=== PATIENT | male | born 1985 | race Caucasian/White ===

== ENCOUNTER 2024-08-02 23:13 | Emergency (ER) | payer SELFPAY ==
[2024-08-02 23:14] VITALS: BP 107/61
[2024-08-02 23:15] VITALS: BP 107/61
[2024-08-02 23:20] VITALS: BMI 26.9
[2024-08-02 23:32] LABS: % Basophils 0.7 % (0-2); % Eosinophils 1.3 % (0-6); % Immature Granulocytes 0.9 % (0-0.5); % Monocytes 4.9 % (1.7-9.3); % Neutrophils 70.2 % (42.2-75.2); Absolute Basophils 0.1 10^3/uL (0-0.2); Absolute Eosinophils 0.2 10^3/uL (0-0.7); Absolute Immature Granulocytes 0.1 10^3/uL (0-0.05); Absolute Lymphocytes 2.5 10^3/uL (1.2-3.4); Absolute Monocytes 0.6 10^3/uL (0.1-0.6); Absolute Neutrophils 7.9 10^3/uL (1.4-6.5); Hematocrit 38.9 % (39.0-52.0); Hemoglobin 13.5 g/dL (13.0-18.0); Mean Corp Hgb Conc. 34.7 g/dL (33.0-37.0); Mean Corpuscular Hgb 28.9 pg (27.0-31.0); Mean Corpuscular Volume 83.3 fL (80.0-94.0); Mean Platelet Volume 9.8 fL (7.4-10.4); Nucleated Red Blood Cells % 0 % (-); Platelet Count 290 10^3/uL (130-400); Red Blood Cell Count 4.67 10^6/uL (4.70-6.10); Red Cell Dist. Width 12.6 % (11.5-14.5); White Blood Cell Count 11.2 10^3/uL (4.8-10.8)
--- NOTE | 2024-08-02 23:47 | ED.GENMED ---
History of Present Illness
<AIDE Miller - Last Filed: 08/03/24 01:07>
General
Chief Complaint: Fainting/Passed Out
Source: patient and family (Mother)
Exam Limitations: none
Time Seen by Provider: 08/02/24 23:37
Nursing documentation reviewed up to this point in time: agreed with
History of Present Illness
History of Present Illness:
Pt is a 38 y/o M with pmhx of substance abuse presents with complaints of left shoulder pain x2 hrs ago. The pt had a witnessed loss of consciousness with diaphoresis at 10 pm. He fell onto his mother and a coffee table and his mother lowered him to
the ground. She is unsure of how long the pt was unconscious for and the pt is unable to recall the event. The pt's mother reported that shook him in an attempt to wake him up. The pt has complaints of severe left shoulder pain that is rated 10/10
in severity. He is unable to move his left arm. He reported that he has not eaten or drank anything all day. Denies numbness, tingling, weakness. Denies history of left shoulder injury, prior shoulder dislocations, prior seizures.
Past History
<AIDE Miller - Last Filed: 08/03/24 01:07>
Past History
ED Past Medical History: None
ED Past Surgical History: None
Social History
Tobacco: Smoker
Alcohol: None
Drug: Marijuana
Review of Systems
<AIDE Miller - Last Filed: 08/03/24 01:07>
Review of Systems
Allergies reviewed?: Yes
Constitutional: Reports no symptoms
EENT: Reports no symptoms
Respiratory: Reports no symptoms
Cardiac: Reports no symptoms
ABD/GI: Reports no symptoms
: Reports no symptoms
Musculoskeletal: Reports joint pain (left shoulder) and joint swelling
Skin: Reports no symptoms
Neurological: Reports no symptoms
Endocrine: Reports no symptoms
Hematologic/Lymphatic: Reports no symptoms
Psychiatric: Reports no symptoms
Phy Exam
<AIDE Miller - Last Filed: 08/03/24 01:07>
General Physical Exam
General Presentation: well appearing and moderate distress
General age: appears stated age
General Skin: warm and dry
General Habitus: normal
General Mental: alert
General Hydration: appears well hydrated
ENT Exam
ENT Exam: EOMI and neck supple
Eye Exam
Eye Exam: PERRL, EOMI, cornea clear and conjunctiva normal
Cardiovascular Exam
Cardiovascular Exam: regular rate/rhythm and normal peripheral pulses
Pulmonary Exam
Pulmonary Exam: lungs clear, no respiratory distress, no rales, chest non tender, no crackles, no rhonchi, no stridor, no wheezing and no cough
Gastrointestinal Exam
Gastrointestinal Exam: normal bowel sounds, non tender, soft and non distended
Neurological Exam
Neurological Exam: alert, oriented x3, CN II-XII intact, no sensory deficits and speech normal
Musculoskeletal Exam
Musculoskeletal Exam: neuro vasc intact and other (left shoulder tenderness. Left humeral head displaced anteriorly. Unable to move left shoulder. Laboratory Miller strength intact. Left elbow and wrist ROM intact.)
Skin Exam
Skin Exam: normal color and warm/dry
Psychiatric Exam
Psychiatric Exam: normal mood/affect
Course
<AIDE Miller - Last Filed: 08/03/24 01:07>
Orders/Labs/Results
Orders:
Orders
08/02/24 23:22
Electrocardiogram (*1) Urgent
Reason for Study: Chest Pain
Cardiac Monitoring- Treatment ONCE
EKG- Treatment ONCE
O2 Therapy [RESP] Urgent
Titrate/Wean O2 to maintain O2 sat greater than (%): 90
Special Instructions: Maintain sats >/=90%
Pulse Ox/spot Check [RESP] Urgent
Quantity: 1
Special Instructions: ON ROOM AIR
08/02/24 23:24
Complete Blood Count/With Diff Urgent
Comprehensive Metabolic Panel Urgent
08/02/24 23:57
HYDROmorphone [Dilaudid] 1 mg IV NOW STA
08/03/24 00:03
CR Shoulder, Trauma - Left Urgent
Reason For Exam: syncope, fall onto L shoulder
08/03/24 00:30
Propofol [Diprivan] 20 ml .ROUTE .STK-MED
08/03/24 01:04
Shoulder, Left 1 View CR [CR Shoulder - Left 1 View] Urgent
Comment:
Reason For Exam: post reduction
08/03/24 01:56
Orthostatic VS- Treatment ONCE
Abnormal Lab Results
08/02/24
23:24
WBC 11.2 H 10^3/uL
(4.8-10.8)
RBC 4.67 L 10^6/uL
(4.70-6.10)
Hct 38.9 L %
(39.0-52.0)
Abs Immat Gran (auto) 0.1 H 10^3/uL
(0-0.05)
Absolute Neuts (auto) 7.9 H 10^3/uL
(1.4-6.5)
Immature Gran % 0.9 H %
(0-0.5)
Carbon Dioxide 18 L mmol/L
(22-30)
Glucose 114 H mg/dl
(70-99)
Albumin 5.2 H g/dl
(3.5-5.0)
08/02/24 23:24
08/02/24 23:24
Vital Signs
Initial and Last Documented VS:
Initial Vital Signs
Temp Pulse Resp BP Pulse Ox
98.3 F 99 18 107/61 98
08/02/24 23:14 08/02/24 23:14 08/02/24 23:14 08/02/24 23:14 08/02/24 23:14
Last Documented Vital Signs
Temp Pulse Resp BP Pulse Ox
98.1 F 80 16 119/74 100
08/03/24 02:02 08/03/24 02:02 08/03/24 02:02 08/03/24 02:02 08/03/24 02:02
<Swathi Monroy, DO - Last Filed: 08/03/24 02:54>
Orders/Labs/Results
Orders:
Orders
08/02/24 23:22
Electrocardiogram (*1) Urgent
Reason for Study: Chest Pain
Cardiac Monitoring- Treatment ONCE
EKG- Treatment ONCE
O2 Therapy [RESP] Urgent
Titrate/Wean O2 to maintain O2 sat greater than (%): 90
Special Instructions: Maintain sats >/=90%
Pulse Ox/spot Check [RESP] Urgent
Quantity: 1
Special Instructions: ON ROOM AIR
08/02/24 23:24
Complete Blood Count/With Diff Urgent
Comprehensive Metabolic Panel Urgent
08/02/24 23:57
HYDROmorphone [Dilaudid] 1 mg IV NOW STA
08/03/24 00:03
CR Shoulder, Trauma - Left Urgent
Reason For Exam: syncope, fall onto L shoulder
08/03/24 00:30
Propofol [Diprivan] 20 ml .ROUTE .STK-MED
08/03/24 01:04
Shoulder, Left 1 View CR [CR Shoulder - Left 1 View] Urgent
Comment:
Reason For Exam: post reduction
08/03/24 01:56
Orthostatic VS- Treatment ONCE
Abnormal Lab Results
08/02/24
23:24
WBC 11.2 H 10^3/uL
(4.8-10.8)
RBC 4.67 L 10^6/uL
(4.70-6.10)
Hct 38.9 L %
(39.0-52.0)
Abs Immat Gran (auto) 0.1 H 10^3/uL
(0-0.05)
Absolute Neuts (auto) 7.9 H 10^3/uL
(1.4-6.5)
Immature Gran % 0.9 H %
(0-0.5)
Carbon Dioxide 18 L mmol/L
(22-30)
Glucose 114 H mg/dl
(70-99)
Albumin 5.2 H g/dl
(3.5-5.0)
08/02/24 23:24
08/02/24 23:24
Vital Signs
Initial and Last Documented VS:
Initial Vital Signs
Temp Pulse Resp BP Pulse Ox
98.3 F 99 18 107/61 98
08/02/24 23:14 08/02/24 23:14 08/02/24 23:14 08/02/24 23:14 08/02/24 23:14
Last Documented Vital Signs
Temp Pulse Resp BP Pulse Ox
98.1 F 80 16 119/74 100
08/03/24 02:02 08/03/24 02:02 08/03/24 02:02 08/03/24 02:02 08/03/24 02:02
Procedures
<AIDE Miller - Last Filed: 08/03/24 01:07>
Splinting/Sling Placement
Left Shoulder:
Procedure completed by: AIDE Miller
Pre-splint extermity exam: neurovascular intact
Type of sling: shoulder immobilizer
Normal distal neurovascular exam?: Yes
Joint/Fracture Reduction
Left Shoulder:
Indication for procedure:: Left shoulder dislocation
Procedure completed by: AIDE Miller; Swathi Monroy DO
Consent form signed: Yes
Joint reduced: with anesthesia sedation (Moderate sedation at bedside by ED provider)
Anesthesia/sedation: Moderate sedation
Injury was: closed
Further treatement: needs re-check only
Post reduction exam: stable
Capillary Refill: normal
Normal distal neurovascular exam?: Yes
<Swathi Monroy DO - Last Filed: 08/03/24 02:54>
Moderate Sedation
ASA Risk Score: Class I
Chart and allergies reviewed: Yes
Consent for anesthesia obtained: Yes
Time out completed (validating right patient & procedure): Yes
Moderate Sedation Start Time(when first medication is given): 00:56
History of difficult intubation: No
Airway free of obstruction: Yes
Patient has a gag reflex: Yes
Patient is able to open mouth: Yes
Patient has no dentures: Yes
Patient has no loose teeth: Yes
Medication administered by Provider during Moderate Sedation: IV Propofol (mg)
Total dose administered: 130
Time drug administered: 00:56
Moderate Sedation Procedure End Time: 01:06
<AIDE Miller - Last Filed: 08/03/24 01:07>
MDM/Problems Addressed
Differential Diagnosis Includes:
Left shoulder dislocation
<AIDE Miller - Last Filed: 08/03/24 01:07>
*Critical Care Note
Total Time (30-74mins, 75-104mins- exclusive of procedures): Not Applicable
<Swathi Monroy DO - Last Filed: 08/03/24 02:54>
*Pulse Oximetry
Patient hypoxic: no
*EKG
Interpreted by ED Provider?: Yes
Interpretation: normal
Comparison EKG: no comparison EKG present
Rate: normal
Rhythm: sinus
Hemphill: normal axis
Interval: normal interval
QRS Pattern: normal QRS
Ischemia: no ischemia
*Floral Artist Interpretation
Rate: normal
Interpretation: normal
Rhythm: sinus
*Critical Care Note
Total Time (30-74mins, 75-104mins- exclusive of procedures): Not Applicable
ED Attending Note
<AIDE Miller - Last Filed: 08/03/24 01:07>
-
Portions of this chart may have been created with voice recognition software.� Occasional wrong word or��sound alike� substitutions may have occurred due to the inherent limitations of voice recognition software.
<Swathi Monroy DO - Last Filed: 08/03/24 02:54>
ED Attending Note
Patient seen and examined by attending physician: Yes
I performed the substantive portion of visit, reviewed & personally made and approve the management plan that is documented in note by myself or HINA.: Yes
ED Attending Note:
38-year-old right hand dominant gentleman presents via EMS after suffering a syncopal event witnessed by mom. She states her son suddenly turned and fell against her. She noticed that he was very pale/sen in appearance, diaphoretic with sen
lips. Patient was standing at the time, fell onto his mother and then fell to the left onto a coffee table. She states she was attempting to shake him to wake him but unsuccessful until EMS arrived. Patient himself was not shaking, she denies
witnessing seizure-like activity. No history of similar episodes in the past. Patient states he was feeling well prior to that but he does admit to not eating much throughout the day today which is not like him.
His only past medical history is prior history of substance abuse, maintained on Suboxone. He denies alcohol nor benzodiazepine abuse.
He complains of left shoulder pain, inability to move his left shoulder. No headache, no neck nor back pain. No nausea or vomiting. Not incontinent of bladder nor bowel.
TRAUMA EXAM:
VITAL SIGNS: Vital signs reviewed, cooperative
DISTRESS: Appears in moderate distress related to left shoulder pain. Cooperative and easily communicative. Mother is accompanying.
EYES: Pupils reactive, no orbital trauma
NOSE: No deformity or epistaxis
FACE AND SCALP: No scalp or facial trauma, external canals no blood
NECK: Supple nontender
BACK: Back nontender, pelvis stable to compression
RESPIRATORY: No distress, breath sounds normal, no tender chest wall
CARDIAC: No murmur, pulses equal and strong
ABDOMEN: Soft nontender bowel sounds normal
SKIN: Skin intact no bleeding, color normal
EXTREMITIES: Moderate tenderness about the left shoulder with squared off deformity and markedly limited range of motion left shoulder related to pain. There is no tenderness to the upper arm nor forearm. Peripheral pulses are full and equal
bilaterally. Hand grasps are full and equal.
NEUROLOGICAL: Alert, oriented, no motor deficits
PSYCH: Mood affect normal
History most consistent with syncopal event. Mother continues to deny witnessing seizure activity.
Exam concerning for left shoulder dislocation versus fracture.
Other consideration is cardiac arrhythmia, electrolyte abnormality, anemia.
EKG is unremarkable, within normal limits.
He remains hemodynamically stable.
Labs are unremarkable save for very mild metabolic acidosis. Random glucose normal 114.
Will medicate for pain and check x-ray of left shoulder.
Will continue equipment monitor phototypesetting.
xray shows anterior dislocation left shoulder.
Shoulder reduced successfully under moderate sedation.
Pt tolerated procedure well without complication
He is now awake and alert. No complaints.
Has been placed in shoulder immobilizer.
Post reduction film shows successful reduction. (-)fx.
Remains hemodynamically stable
Monitor continues to show NSR.
Orthostatic VS (-)
Discussed importance of remaining well hydrated on daily basis, avoid skipping meals
Will refer to ortho for follow up.
Will refer to PCP for recheck as well.
Discharge Plan
Departure
Patient Disposition: Home (Routine Discharge)
Date of Disposition: 08/03/24
Time of Disposition: 02:47
Patient with high blood pressure during this ER visit?: No
Condition: Good
Discharge Problem:
Syncope, vasovagal, Dislocation of shoulder, left, closed
Instructions: Shoulder Dislocation (DC), Syncope (Fainting) (DC)
Prescriptions:
New
ibuprofen 800 mg tablet
800 mg PO QIDPRN PRN (Reason: pain, fever) Qty: 30 0RF
No Action
buprenorphine-naloxone [Suboxone] 8-2 mg Film
1 film BUCCAL DAILY
Referrals:
NONE,* [Family Provider] -
Zenon Jurado MD [Active] - Call in 1-3 days for appt
Interventions
Interventions:
*Risk Screen - Suicide Last Done: 08/02/24 23:14
*General Assessment Last Done: 08/02/24 23:14
*Neglect/Abuse Screening Last Done: 08/02/24 23:14
*ED COVID-19 Vaccine History Last Done: 08/02/24 23:14
ED- Cardiac Assessment Last Done: 08/03/24 00:05
ED- Neurological Assessment Last Done: 08/03/24 00:05
Discharge Date and Time
Print Language: [place]
[2024-08-02 23:55] LABS: AST (SGOT) 27 U/L (17-59); Albumin 5.2 g/dl (3.5-5.0); Alkaline Phosphatase 68 U/L (38-126); Blood Urea Nitrogen 12 mg/dl (9-20); Calcium 9.9 mg/dl (8.4-10.2); Carbon Dioxide 18 mmol/L (22-30); Chloride 102 mmol/L (98-107); Estimated Creatinine Clearance 94 ml/min; Glucose 114 mg/dl (70-99); Potassium 4.3 mmol/L (3.5-5.1); Sodium 144 mmol/L (135-145); Total Bilirubin 0.3 mg/dl (0.2-1.3); Total Protein 7.7 g/dl (6.3-8.2); eGFR > 60.00
[2024-08-03] VITALS (23 sets, daily range): BP systolic 91–132; BP diastolic 64–94; PULSE 80–81
[2024-08-03] MEDS: DILAUDID 1 MG IV (00:02)
[2024-08-03 00:05] LABS: ALT (SGPT) 33 U/L (0-50)
== END 2024-08-03 03:10 | disposition home or self-care (01) ==
LOC: EMR 23:13
PROVIDERS: EMERGENCY PHYSICIAN Emergency Medicine
DX: R55 Syncope and collapse (principal); S43.005A Unspecified dislocation of left shoulder joint, initial encounter; W19.XXXA Unspecified fall, initial encounter; F19.11 Other psychoactive substance abuse, in remission; F17.200 Nicotine dependence, unspecified, uncomplicated; Z79.899 Other long term (current) drug therapy
CPT/HCPCS: 99285; 23650; 96374; 99152; 73020; 73030; 80053; 85025; 93005